=== PATIENT | female | born 1935 | race Caucasian/White ===

== ENCOUNTER 2016-10-01 22:58 | Emergency (ER) | payer OTHER ==
[~2016-10-01] VITALS: Ht 165.1 cm; Wt 87.6 kg
[~2016-10-01 22:58] MED LIST: ACETAMINOPHEN325 M1 PO; ADVAIR HFA120 INHALA IH; AMLODIPINE BES2.5 MG PO; ASPIR-LOW81 MG PO; BACIGUENT28.4 GM PO; BACTRIM,SEPT1 TABLET PO; BISACODYL5 MG PO; CALCIUM 500 +1 EACH PO; CALCIUM CARB1 TABLET PO; CYCLOBENZAPRINE5 MG PO; DOCUSATE SODIU100 MG PO; DOXEPIN HCL10 MG PO; DUONEB 2.5-0.5 M3 ML AEROSOL; ECOTRIN325 MG PO; FUROSEMIDE40 MG PO; HEPARIN SO5000 UNITS SC; HYDROCODON-ACE1 EAC7 PO; HYDROCODON-ACE1 EAC9 PO; HYDROMORPHONE HC2 MG PO; LEXAPRO10 MG PO; LOSARTAN-HCTZ1 EAC1 PO; LOVENOX40 MG/0.4 SC; METRONIDAZOLE500 MG PO; NORCO 5/3251 TABLET PO; OXYCODONE HCL5 MG PO; POLYETHYLENE GL17 GM PO; PRAVACHOL20 MG PO; PRAVASTATIN SOD40 MG PO; PRILOSEC20 MG PO; PROTONIX40 MG PO; SENNA PLUS TAB1 EACH PO; SILENOR3 MG PO; SPIRIVA RESPIMAT4 GM IH; TOPROL XL50 MG PO; TYLENOL REGULA325 MG PO; TYLENOL WITH C1 EACH PO; Thiamine,Vitamin B1 PO; Vitamin B-12 SL; [UNRECOGNIZED DRUG - MIXTURE] IV
[2016-10-01 23:36] LABS: HEMATOCRIT 37.9 % (36.0-46.0); MCH 31.2 PG (29.0-34.0); MCHC 32.7 G/DL (30.0-36.0); MCV 95.5 FL (83-99); MEAN PLAT.VOLUME 9.3 uM^3 (9.5-12.4); PLATELET COUNT 210 K/uL (156-360); RBC DIS.WIDTH-CV 14.7 % (11.8-14.6); RBC DIS.WIDTH-SD 48.8 % (39-53); RED BLOOD COUNT 3.97 M/uL (3.80-5.20); WHITE BLOOD COUNT 5.8 K/uL (4.1-10.2)
[2016-10-01 23:55] LABS: CHLORIDE 108 mEq/L (99-109); POTASSIUM 3.6 mEq/L (3.7-5.4); SODIUM 146 mEq/L (136-147)
[2016-10-01 23:57] LABS: GLUCOSE 112 mg/dL (70-99)
[2016-10-01 23:58] LABS: ANION GAP 13 MEQ/L (2-14)
[2016-10-02 00:01] LABS: GFR ESTIMATE (CALCULATED) 51 mL/min/
[2016-10-02 00:02] LABS: UREA NITROGEN (BUN) 16 mg/dL (9-23)
[2016-10-02 00:05] LABS: TROP-I INTERPRETATION NEGATIVE; TROPONIN-I < 0.01 ng/mL (0.0-0.30)
[2016-10-02 01:01] LABS: ADD MIUA? YES; BILIRUBIN NEGATIVE; BLOOD NEGATIVE; COLOR YELLOW ((YELLOW)); GLUCOSE (STRIP) NEGATIVE; KETONES NEGATIVE; LEUKOCYTES SMALL; NITRITE NEGATIVE; PROTEIN (STRIP) NEGATIVE; UROBILINOGEN 0.2 MG/DL (0.2-1.0)
[2016-10-02 01:16] LABS: BACTERIA RARE /HPF; EPITHELIAL CELLS RARE /HPF; HYALINE CASTS 0-5 /LPF; MUCUS TRACE /LPF; RED BLOOD CELLS 0-5 /HPF (0-5); UCUL ADDED? NO; WHITE BLOOD CELLS 0-5 /HPF (0-5)
[2016-10-02] MEDS ORDERED: NORCO 5/3251 TABLET PO (02:04)
[2016-10-02 02:15] VITALS: BP 134/76
== END 2016-10-02 02:38 | disposition home or self-care (01) ==
LOC: EME → EDBD 22:58 → EME 10-02 02:38
PROVIDERS: Emergency Medicine
DX: S00.83XA Contusion of other part of head, initial encounter (principal); S00.11XA Contusion of right eyelid and periocular area, initial encounter; W19.XXXA Unspecified fall, initial encounter; Z91.81 History of falling
CPT/HCPCS: 70450; 70486; 71020; 72125; 80048; 81003; 84484; 85027; 93005; 99281; 99284

== ENCOUNTER 2017-08-10 19:48 | Inpatient (IN) | payer OTHER ==
[~2017-08-10] VITALS: Ht 172.7 cm; Wt 85.0 kg
[~2017-08-10 19:48] MED LIST changes: +PROTONIX20 MG PO; -PROTONIX40 MG PO
[2017-08-10 21:14] LABS: BASOPHIL (%) 0.2 % (0-1); EOSINOPHIL (%) 0.4 % (0-5); HEMATOCRIT 40.5 % (36.0-46.0); HEMOGLOBIN 13.3 G/DL (11.9-15.5); IMMATURE GRANULOCYTE (%) 0.6 % (0.0-0.7); LYMPHOCYTE (%) 9.9 % (15-42); LYMPHOCYTE COUNT 0.5 K/uL (1.0-2.8); MCH 33.7 PG (29.0-34.0); MCHC 32.8 G/DL (30.0-36.0); MCV 102.5 FL (83-99); MONOCYTE (%) 5.5 % (3-12); MONOCYTE COUNT 0.3 K/uL (0-0.8); NEUTROPHIL (%) 83.4 % (45-76); NEUTROPHIL COUNT 4.6 K/uL (1.8-6.4); PLATELET COUNT 130 K/uL (156-360); RBC DIS.WIDTH-CV 14.6 % (11.8-14.6); RBC DIS.WIDTH-SD 55.2 % (39-53); RED BLOOD COUNT 3.95 M/uL (3.80-5.20); WHITE BLOOD COUNT 5.5 K/uL (4.1-10.2)
[2017-08-10 21:22] LABS: ALBUMIN 3.3 g/dL (3.2-4.8); CHLORIDE 103 mEq/L (99-109); POTASSIUM 3.6 mEq/L (3.7-5.4); SODIUM 141 mEq/L (136-147)
[2017-08-10 21:24] LABS: GLUCOSE 121 mg/dL (70-99)
[2017-08-10 21:25] LABS: TOTAL PROTEIN 6.1 g/dL (6.4-8.3)
[2017-08-10 21:26] LABS: TOTAL BILIRUBIN 1.8 mg/dL (0.0-1.0)
[2017-08-10 21:28] LABS: ALKALINE PHOSPHATASE 117 IU/L (3-129); CREATININE 0.8 mg/dL (0.6-1.3); GFR ESTIMATE (CALCULATED) > 59 mL/min/
[2017-08-10 21:29] LABS: UREA NITROGEN (BUN) 13 mg/dL (9-23)
[2017-08-10 21:30] LABS: AST (GOT) 54 IU/L (2-34)
[2017-08-10 21:31] LABS: ALT (GPT) 34 IU/L (3-49)
[2017-08-10 21:35] LABS: TROP-I INTERPRETATION NEGATIVE; TROPONIN-I 0.02 ng/mL (0.0-0.30)
[2017-08-10] MEDS ORDERED: PRAVACHOL40 MG PO (23:33)
[2017-08-10] MEDS ORDERED: LOPRESSOR50 MG PO (23:33)
[2017-08-10] MEDS ORDERED: COMBIVENT RESPIM4 GM IH (23:34)
[2017-08-10] MEDS ORDERED: VENTOLIN HFA18 GM IH (23:34)
[2017-08-10] MEDS ORDERED: DOXEPIN HCL10 MG PO (23:35)
[2017-08-11 02:08] VITALS: BP 213/92
[2017-08-11 04:15] VITALS: BP 160/72
[2017-08-11 07:18] LABS: APPEARANCE CLOUDY ((CLEAR)); BILIRUBIN NEGATIVE; BLOOD NEGATIVE; COLOR AMBER ((YELLOW)); GLUCOSE (STRIP) NEGATIVE; KETONES NEGATIVE; LEUKOCYTES MODERATE; NITRITE NEGATIVE; PROTEIN (STRIP) 30
[2017-08-11 07:30] LABS: BACTERIA 1+ /HPF; EPITHELIAL CELLS 3+ /HPF; HYALINE CASTS 0-5 /LPF; MUCUS 1+ /LPF; RED BLOOD CELLS 0-5 /HPF (0-5); UCUL ADDED? YES; WHITE BLOOD CELLS 40-50 /HPF (0-5)
[2017-08-11 07:57] LABS: FOLIC ACID (FOLATE) 10.8 NG/ML (5.0-22.0)
[2017-08-11 09:40] VITALS: BP 137/66
[2017-08-11 11:18] VITALS: BP 144/67
[2017-08-11 15:28] VITALS: BP 142/67
[2017-08-11 19:00] VITALS: BP 176/74
[2017-08-12] VITALS: BP 160/71
[2017-08-12 04:19] VITALS: BP 148/68
[2017-08-12 06:20] LABS: CHLORIDE 104 MEQ/L (99-109); CREATININE 0.9 MG/DL (0.6-1.3); GFR ESTIMATE (CALCULATED) > 59 mL/min/; GLUCOSE 94 mg/dL (70-99); POTASSIUM 3.9 MEQ/L (3.7-5.4); SODIUM 143 MEQ/L (136-147); UREA NITROGEN (BUN) 14 mg/dL (9-23)
[2017-08-12 06:24] LABS: HEMATOCRIT 38.2 % (36.0-46.0); HEMOGLOBIN 11.8 G/DL (11.9-15.5); MCHC 30.9 G/DL (30.0-36.0); PLATELET COUNT 126 K/uL (156-360); RBC DIS.WIDTH-CV 14.8 % (11.8-14.6); RBC DIS.WIDTH-SD 58.2 % (39-53); RED BLOOD COUNT 3.58 M/uL (3.80-5.20); WHITE BLOOD COUNT 5.1 K/uL (4.1-10.2)
[2017-08-12 06:27] LABS: MCV 106.7 FL (83-99)
[2017-08-12 07:55] VITALS: BP 157/68
[2017-08-12 11:53] VITALS: BP 167/71
[2017-08-12 15:57] VITALS: BP 128/62
[2017-08-12 18:11] VITALS: BP 150/66
[2017-08-13 00:23] VITALS: BP 157/68
[2017-08-13 04:21] VITALS: BP 125/58
[2017-08-13 09:50] VITALS: BP 136/63
[2017-08-13 11:58] VITALS: BP 118/56
[2017-08-13 15:18] VITALS: BP 114/55
[2017-08-13 23:42] VITALS: BP 134/63
[2017-08-14 05:12] VITALS: BP 126/60
[2017-08-14 09:54] LABS: HEMATOCRIT 39.7 % (36.0-46.0); HEMOGLOBIN 12.7 G/DL (11.9-15.5); MCH 33.4 PG (29.0-34.0); MCV 104.5 FL (83-99); RBC DIS.WIDTH-CV 14.6 % (11.8-14.6); RBC DIS.WIDTH-SD 55.8 % (39-53); WHITE BLOOD COUNT 7.9 K/uL (4.1-10.2)
[2017-08-14 09:57] LABS: PLATELET COUNT 170 K/uL (156-360)
[2017-08-14 10:09] LABS: CHLORIDE 100 MEQ/L (99-109); POTASSIUM 4.1 MEQ/L (3.7-5.4); SODIUM 136 MEQ/L (136-147)
[2017-08-14 10:29] LABS: CREATININE 1.5 MG/DL (0.6-1.3); GFR ESTIMATE (CALCULATED) 36 mL/min/; GLUCOSE 133 mg/dL (70-99); UREA NITROGEN (BUN) 39 mg/dL (9-23)
[2017-08-14 15:15] VITALS: BP 116/64
[2017-08-14 19:11] VITALS: BP 158/73
[2017-08-14 23:14] VITALS: BP 114/57
[2017-08-15 03:52] VITALS: BP 127/60
[2017-08-15 09:39] VITALS: BP 150/69
[2017-08-15 11:39] VITALS: BP 186/77
[2017-08-15 15:34] VITALS: BP 152/66
[2017-08-15 20:26] VITALS: BP 167/70
[2017-08-16] VITALS (7 sets, daily range): BP systolic 125–183; BP diastolic 59–76
[2017-08-17] VITALS (7 sets, daily range): BP systolic 117–176; BP diastolic 61–74
[2017-08-17 14:54] LABS: CHLORIDE 103 MEQ/L (99-109); GFR ESTIMATE (CALCULATED) > 59 mL/min/; GLUCOSE 130 mg/dL (70-99); POTASSIUM 4.4 MEQ/L (3.7-5.4); SODIUM 141 MEQ/L (136-147)
[2017-08-17 15:43] LABS: CREATININE 0.8 MG/DL (0.6-1.3); UREA NITROGEN (BUN) 19 mg/dL (9-23)
[2017-08-18 04:06] VITALS: BP 160/73
[2017-08-18 05:31] LABS: BASOPHIL (%) 0.8 % (0-1); BASOPHIL COUNT 0.1 K/uL (0-0.1); EOSINOPHIL (%) 2.1 % (0-5); EOSINOPHIL COUNT 0.1 K/uL (0-0.3); HEMATOCRIT 41.4 % (36.0-46.0); HEMOGLOBIN 13.1 G/DL (11.9-15.5); IMMATURE GRANULOCYTE (%) 0.2 % (0.0-0.7); LYMPHOCYTE (%) 22.6 % (15-42); LYMPHOCYTE COUNT 1.4 K/uL (1.0-2.8); MCH 33.7 PG (29.0-34.0); MCHC 31.6 G/DL (30.0-36.0); MCV 106.4 FL (83-99); MONOCYTE (%) 8.8 % (3-12); MONOCYTE COUNT 0.5 K/uL (0-0.8); NEUTROPHIL (%) 65.5 % (45-76); PLATELET COUNT 193 K/uL (156-360); RBC DIS.WIDTH-CV 14.6 % (11.8-14.6); RBC DIS.WIDTH-SD 57.3 % (39-53); RED BLOOD COUNT 3.89 M/uL (3.80-5.20); WHITE BLOOD COUNT 6.1 K/uL (4.1-10.2)
[2017-08-18 06:05] LABS: CHLORIDE 104 MEQ/L (99-109); CREATININE 0.9 MG/DL (0.6-1.3); GFR ESTIMATE (CALCULATED) > 59 mL/min/; GLUCOSE 84 mg/dL (70-99); POTASSIUM 4.3 MEQ/L (3.7-5.4); SODIUM 143 MEQ/L (136-147); UREA NITROGEN (BUN) 14 mg/dL (9-23)
[2017-08-18 08:58] VITALS: BP 185/79
[2017-08-18 11:47] VITALS: BP 168/70
[2017-08-18 15:22] VITALS: BP 162/74
[2017-08-18 23:38] VITALS: BP 172/72
[2017-08-19 02:47] VITALS: BP 128/73
[2017-08-19 08:25] VITALS: BP 178/74
[2017-08-19 12:41] VITALS: BP 149/67
[2017-08-19] MEDS ORDERED: OXYCODONE HCL5 MG PO (13:52)
[2017-08-19] MEDS ORDERED: AMLODIPINE BESYL5 MG PO (13:52)
[2017-08-19 15:20] VITALS: BP 139/62
== END 2017-08-19 16:40 | DRG 551 ==
LOC: EME 19:48 → EDOF 08-11 00:19 → ENRESERV 08-11 00:21 → 5WEST 08-11 01:57
PROVIDERS: Emergency Medicine; Hospitalist; Internal Medicine
DX: S22.050A Wedge compression fracture of T5-T6 vertebra, initial encounter for closed fracture (principal); J96.01 Acute respiratory failure with hypoxia; W19.XXXA Unspecified fall, initial encounter; N39.0 Urinary tract infection, site not specified; W18.30XA Fall on same level, unspecified, initial encounter; I10 Essential (primary) hypertension; E78.5 Hyperlipidemia, unspecified; E87.6 Hypokalemia; J98.11 Atelectasis; K21.9 Gastro-esophageal reflux disease without esophagitis; Z98.1 Arthrodesis status; Z96.642 Presence of left artificial hip joint; E66.9 Obesity, unspecified; Z68.28 Body mass index [BMI] 28.0-28.9, adult; K76.0 Fatty (change of) liver, not elsewhere classified; E53.8 Deficiency of other specified B group vitamins; J43.9 Emphysema, unspecified; Z91.81 History of falling; I35.0 Nonrheumatic aortic (valve) stenosis
CPT/HCPCS: 70450; 71045; 71250; 72125; 72128; 72131; 72146; 72148; 74176; 80048; 80053; 81003; 82306; 82607; 82746; 83880; 84443; 84484; 85025; 85027; 87086; 93005; 93306; 94010; 94640; 94640 76; 94760; 94799; 97530 GO; 97530 GP; 99202; 99281; 99285; G8978 GP CJ; G8979 GP CH; G8987 GO CJ; G8988 CI; J0456; J1644; J2270; J2405; J2930; J3010; J7030; J7512

== ENCOUNTER 2017-10-11 21:04 | Inpatient (IN) | payer OTHER ==
[~2017-10-11] VITALS: Ht 172.7 cm; Wt 81.7 kg
[~2017-10-11 21:04] MED LIST changes: +AMLODIPINE BESYL5 MG PO; +COMBIVENT RESPIM4 GM IH; +LOPRESSOR50 MG PO; +PRAVACHOL40 MG PO; +VENTOLIN HFA18 GM IH
[2017-10-11 22:57] LABS: HEMOGLOBIN 11.9 G/DL (11.9-15.5); MCH 33.3 PG (29.0-34.0); MCHC 33.1 G/DL (30.0-36.0); MCV 100.8 FL (83-99); PLATELET COUNT 156 K/uL (156-360); RBC DIS.WIDTH-CV 14.6 % (11.8-14.6); RBC DIS.WIDTH-SD 54.4 % (39-53); RED BLOOD COUNT 3.57 M/uL (3.80-5.20); WHITE BLOOD COUNT 6.2 K/uL (4.1-10.2)
[2017-10-11 23:00] LABS: APPEARANCE SL.HAZY ((CLEAR)); BILIRUBIN NEGATIVE; BLOOD NEGATIVE; COLOR YELLOW ((YELLOW)); GLUCOSE (STRIP) NEGATIVE; KETONES NEGATIVE; LEUKOCYTES LARGE; NITRITE NEGATIVE; PROTEIN (STRIP) NEGATIVE; SPECIFIC GRAVITY 1.012 (1.000-1.030)
[2017-10-11 23:04] LABS: INTER. NORMALIZED RATIO 1.1
[2017-10-11 23:06] LABS: ALBUMIN 3.3 g/dL (3.2-4.8); PTT 27.6 SEC (25-37)
[2017-10-11 23:07] LABS: CHLORIDE 106 mEq/L (99-109); POTASSIUM 3.4 mEq/L (3.7-5.4); SODIUM 142 mEq/L (136-147)
[2017-10-11 23:09] LABS: GLUCOSE 121 mg/dL (70-99); TOTAL PROTEIN 5.5 g/dL (6.4-8.3)
[2017-10-11 23:11] LABS: TOTAL BILIRUBIN 0.8 mg/dL (0.0-1.0)
[2017-10-11 23:12] LABS: ALKALINE PHOSPHATASE 121 IU/L (3-129)
[2017-10-11 23:13] LABS: CREATININE 0.8 mg/dL (0.6-1.3); GFR ESTIMATE (CALCULATED) > 59 mL/min/
[2017-10-11 23:14] LABS: AST (GOT) 35 IU/L (2-34); UREA NITROGEN (BUN) 17 mg/dL (9-23)
[2017-10-11 23:15] LABS: ALT (GPT) 20 IU/L (3-49)
[2017-10-11 23:16] LABS: LIPASE 72 U/L (1.0-51.0)
[2017-10-11 23:18] LABS: TROP-I INTERPRETATION NEGATIVE; TROPONIN-I < 0.01 ng/mL (0.0-0.30)
[2017-10-11 23:24] LABS: BACTERIA 1+ /HPF; EPITHELIAL CELLS 1+ /HPF; MUCUS RARE /LPF; UCUL ADDED? YES
[2017-10-12] VITALS (17 sets, daily range): BP systolic 110–152; BP diastolic 51–81
[2017-10-12] MEDS ORDERED: NORVASC5 MG PO (01:24)
[2017-10-12] MEDS ORDERED: FOSAMAX70 MG PO (01:24)
[2017-10-12 05:00] LABS: HEMATOCRIT 33.2 % (36.0-46.0); HEMOGLOBIN 11.4 G/DL (11.9-15.5); MCH 34.2 PG (29.0-34.0); MCHC 34.3 G/DL (30.0-36.0); MCV 99.7 FL (83-99); PLATELET COUNT 157 K/uL (156-360); RBC DIS.WIDTH-CV 14.5 % (11.8-14.6); RBC DIS.WIDTH-SD 52.3 % (39-53); RED BLOOD COUNT 3.33 M/uL (3.80-5.20); WHITE BLOOD COUNT 5.2 K/uL (4.1-10.2)
[2017-10-12 05:08] LABS: ALBUMIN 3.1 g/dL (3.2-4.8)
[2017-10-12 05:09] LABS: CHLORIDE 108 mEq/L (99-109); POTASSIUM 3.9 mEq/L (3.7-5.4); SODIUM 141 mEq/L (136-147)
[2017-10-12 05:11] LABS: GLUCOSE 137 mg/dL (70-99)
[2017-10-12 05:13] LABS: TOTAL BILIRUBIN 0.8 mg/dL (0.0-1.0)
[2017-10-12 05:14] LABS: ALKALINE PHOSPHATASE 111 IU/L (3-129)
[2017-10-12 05:15] LABS: CREATININE 0.7 mg/dL (0.6-1.3); GFR ESTIMATE (CALCULATED) > 59 mL/min/
[2017-10-12 05:16] LABS: AST (GOT) 40 IU/L (2-34); UREA NITROGEN (BUN) 15 mg/dL (9-23)
[2017-10-12 05:18] LABS: ALT (GPT) 21 IU/L (3-49)
[2017-10-13 03:33] VITALS: BP 132/62
[2017-10-13 06:07] LABS: HEMATOCRIT 33.5 % (36.0-46.0); HEMOGLOBIN 10.8 G/DL (11.9-15.5); MCH 32.9 PG (29.0-34.0); MCHC 32.2 G/DL (30.0-36.0); MCV 102.1 FL (83-99); PLATELET COUNT 162 K/uL (156-360); RBC DIS.WIDTH-CV 15.1 % (11.8-14.6); RBC DIS.WIDTH-SD 55.8 % (39-53); RED BLOOD COUNT 3.28 M/uL (3.80-5.20); WHITE BLOOD COUNT 5.8 K/uL (4.1-10.2)
[2017-10-13 06:13] LABS: ALBUMIN 3.1 G/DL (3.2-4.8); ALKALINE PHOSPHATASE 75 IU/L (3-129); ALT (GPT) 14 IU/L (3-49); AST (GOT) 36 IU/L (2-34); CHLORIDE 107 MEQ/L (99-109); CREATININE 0.7 MG/DL (0.6-1.3); GFR ESTIMATE (CALCULATED) > 59 mL/min/; GLUCOSE 112 mg/dL (70-99); POTASSIUM 4.1 MEQ/L (3.7-5.4); SODIUM 139 MEQ/L (136-147); TOTAL BILIRUBIN 0.9 MG/DL (0.0-1.0); TOTAL PROTEIN 5.1 G/DL (6.4-8.3); UREA NITROGEN (BUN) 11 mg/dL (9-23)
[2017-10-13 08:11] VITALS: BP 121/57
[2017-10-13 11:53] VITALS: BP 118/57
[2017-10-13 17:11] VITALS: BP 144/65
[2017-10-13 20:40] VITALS: BP 148/65
[2017-10-14 00:18] VITALS: BP 132/84
[2017-10-14 04:51] VITALS: BP 150/65
[2017-10-14 06:03] LABS: HEMATOCRIT 36.1 % (36.0-46.0); HEMOGLOBIN 11.5 G/DL (11.9-15.5); MCHC 31.9 G/DL (30.0-36.0); MCV 103.4 FL (83-99); PLATELET COUNT 191 K/uL (156-360); RBC DIS.WIDTH-CV 15.3 % (11.8-14.6); RBC DIS.WIDTH-SD 57.7 % (39-53); RED BLOOD COUNT 3.49 M/uL (3.80-5.20); WHITE BLOOD COUNT 8.3 K/uL (4.1-10.2)
[2017-10-14 06:37] LABS: ALBUMIN 3.5 G/DL (3.2-4.8); ALKALINE PHOSPHATASE 92 IU/L (3-129); ALT (GPT) 18 IU/L (3-49); AST (GOT) 30 IU/L (2-34); CHLORIDE 105 MEQ/L (99-109); CREATININE 0.8 MG/DL (0.6-1.3); GFR ESTIMATE (CALCULATED) > 59 mL/min/; GLUCOSE 101 mg/dL (70-99); POTASSIUM 4.3 MEQ/L (3.7-5.4); SODIUM 142 MEQ/L (136-147); TOTAL PROTEIN 5.6 G/DL (6.4-8.3); UREA NITROGEN (BUN) 10 mg/dL (9-23)
[2017-10-14 06:43] LABS: TOTAL BILIRUBIN 1.3 MG/DL (0.0-1.0)
[2017-10-14 07:23] VITALS: BP 130/63
[2017-10-14 10:25] VITALS: BP 123/62
[2017-10-14 15:59] VITALS: BP 158/72
[2017-10-14 20:38] VITALS: BP 138/63
[2017-10-15] VITALS (7 sets, daily range): BP systolic 126–167; BP diastolic 59–74
[2017-10-16 04:28] VITALS: BP 134/61
[2017-10-16 07:57] VITALS: BP 167/74
[2017-10-16 09:08] LABS: ALBUMIN 3.4 G/DL (3.2-4.8); ALKALINE PHOSPHATASE 87 IU/L (3-129); ALT (GPT) 15 IU/L (3-49); AST (GOT) 22 IU/L (2-34); CHLORIDE 100 MEQ/L (99-109); CREATININE 0.6 MG/DL (0.6-1.3); DIRECT BILIRUBIN 0.5 mg/dL (0.0-0.3); GFR ESTIMATE (CALCULATED) > 59 mL/min/; GLUCOSE 133 mg/dL (70-99); POTASSIUM 3.5 MEQ/L (3.7-5.4); SODIUM 140 MEQ/L (136-147); TOTAL PROTEIN 5.4 G/DL (6.4-8.3); UREA NITROGEN (BUN) 12 mg/dL (9-23)
[2017-10-16 09:16] LABS: TOTAL BILIRUBIN 1.6 MG/DL (0.0-1.0)
[2017-10-16 11:00] VITALS: BP 159/72
[2017-10-16 15:00] LABS: APPEARANCE CLEAR ((CLEAR)); BILIRUBIN NEGATIVE; BLOOD NEGATIVE; COLOR YELLOW ((YELLOW)); GLUCOSE (STRIP) NEGATIVE; KETONES NEGATIVE; LEUKOCYTES NEGATIVE; NITRITE NEGATIVE; PROTEIN (STRIP) NEGATIVE; SPECIFIC GRAVITY 1.018 (1.000-1.030); UCUL ADDED? NO
[2017-10-16 16:12] VITALS: BP 151/71
[2017-10-17 01:07] VITALS: BP 136/65
[2017-10-17 06:20] LABS: ALKALINE PHOSPHATASE 72 IU/L (3-129); ALT (GPT) 14 IU/L (3-49); AST (GOT) 23 IU/L (2-34); CHLORIDE 99 MEQ/L (99-109); CREATININE 0.6 MG/DL (0.6-1.3); GFR ESTIMATE (CALCULATED) > 59 mL/min/; POTASSIUM 3.3 MEQ/L (3.7-5.4); SODIUM 138 MEQ/L (136-147); TOTAL BILIRUBIN 1.6 MG/DL (0.0-1.0); TOTAL PROTEIN 5.5 G/DL (6.4-8.3); UREA NITROGEN (BUN) 12 mg/dL (9-23)
[2017-10-17 06:21] LABS: GLUCOSE 91 mg/dL (70-99)
[2017-10-17 07:00] VITALS: BP 144/67
[2017-10-17 12:08] VITALS: BP 133/63
[2017-10-17 15:30] VITALS: BP 157/67
[2017-10-17 23:30] VITALS: BP 123/58
[2017-10-18 07:37] LABS: ALKALINE PHOSPHATASE 79 IU/L (3-129); ALT (GPT) 14 IU/L (3-49); AST (GOT) 20 IU/L (2-34); DIRECT BILIRUBIN 0.5 mg/dL (0.0-0.3); TOTAL BILIRUBIN 1.5 MG/DL (0.0-1.0); TOTAL PROTEIN 5.2 G/DL (6.4-8.3)
[2017-10-18 07:38] LABS: ALBUMIN 3.1 G/DL (3.2-4.8); ALKALINE PHOSPHATASE 80 IU/L (3-129); ALT (GPT) 14 IU/L (3-49); AST (GOT) 20 IU/L (2-34); CHLORIDE 102 MEQ/L (99-109); CREATININE 0.6 MG/DL (0.6-1.3); GFR ESTIMATE (CALCULATED) > 59 mL/min/; GLUCOSE 88 mg/dL (70-99); POTASSIUM 3.4 MEQ/L (3.7-5.4); SODIUM 143 MEQ/L (136-147); TOTAL BILIRUBIN 1.5 MG/DL (0.0-1.0); TOTAL PROTEIN 5.3 G/DL (6.4-8.3); UREA NITROGEN (BUN) 12 mg/dL (9-23)
[2017-10-18 07:55] VITALS: BP 153/67
[2017-10-18 11:02] VITALS: BP 135/64
[2017-10-18] MEDS ORDERED: SENNA LAX8.6 MG PO (15:33)
[2017-10-18] MEDS ORDERED: TRAMADOL HCL50 MG PO (15:33)
[2017-10-18 17:03] VITALS: BP 176/75
== END 2017-10-18 18:19 | DRG 87 ==
LOC: EME → EDBD 21:04 → EDOF 10-12 01:23 → 3EAST 10-12 01:23 → 4WEST 10-12 01:23 → ENRESERV 10-12 01:25 → 4WEST 10-12 02:58 → ENRESERV 10-12 12:35 → 3EAST 10-12 16:13
PROVIDERS: Emergency Medicine; Physician Assistant; Surgery
DX: S06.5X0A Traumatic subdural hemorrhage without loss of consciousness, initial encounter (principal); S06.6X0A Traumatic subarachnoid hemorrhage without loss of consciousness, initial encounter; S02.119A Unspecified fracture of occiput, initial encounter for closed fracture; W18.30XA Fall on same level, unspecified, initial encounter; S01.01XA Laceration without foreign body of scalp, initial encounter; Z91.81 History of falling; J44.9 Chronic obstructive pulmonary disease, unspecified; R40.2410 Glasgow coma scale score 13-15, unspecified time; K21.9 Gastro-esophageal reflux disease without esophagitis; R29.6 Repeated falls; E66.9 Obesity, unspecified; Z68.28 Body mass index [BMI] 28.0-28.9, adult; I10 Essential (primary) hypertension; R25.1 Tremor, unspecified; Z87.891 Personal history of nicotine dependence; E78.5 Hyperlipidemia, unspecified; E87.6 Hypokalemia; I25.2 Old myocardial infarction; Z87.440 Personal history of urinary (tract) infections; E04.2 Nontoxic multinodular goiter; D18.03 Hemangioma of intra-abdominal structures; Z79.82 Long term (current) use of aspirin; D69.1 Qualitative platelet defects; N39.41 Urge incontinence; Z98.1 Arthrodesis status; R31.9 Hematuria, unspecified
CPT/HCPCS: 70450; 70496; 70498; 71045; 72125; 72131; 76705; 80048; 80053; 80076; 81003; 82310; 83690; 84484; 85027; 85610; 85730; 87086; 87641; 93005; 94640; 94640 76; 94799; 95819; 97530 GP; 99202; 99281; 99285; J0744; J2270; J7030

== ENCOUNTER → 2017-11-06 | Outpatient (CLI) | payer OTHER ==
[~2017-11-06] MED LIST changes: +FOSAMAX70 MG PO; +NORVASC5 MG PO; +SENNA LAX8.6 MG PO; +TRAMADOL HCL50 MG PO
== END | disposition home or self-care (01) ==
LOC: RAD 09:00
DX: D18.1 Lymphangioma, any site (principal); S02.119D Unspecified fracture of occiput, subsequent encounter for fracture with routine healing; I67.89 Other cerebrovascular disease
CPT/HCPCS: 70450

== ENCOUNTER 2018-01-09 22:11 | Inpatient (IN) | payer OTHER ==
[~2018-01-09] VITALS: Ht 172.7 cm; Wt 90.0 kg
[2018-01-09 23:01] LABS: HEMATOCRIT 37.2 % (36.0-46.0); HEMOGLOBIN 12.4 G/DL (11.9-15.5); MCH 31.9 PG (29.0-34.0); MCHC 33.3 G/DL (30.0-36.0); PLATELET COUNT 215 K/uL (156-360); RBC DIS.WIDTH-CV 15.2 % (11.8-14.6); RBC DIS.WIDTH-SD 53.4 % (39-53); RED BLOOD COUNT 3.89 M/uL (3.80-5.20); WHITE BLOOD COUNT 7.3 K/uL (4.1-10.2)
[2018-01-09 23:14] LABS: CHLORIDE 105 mEq/L (99-109); POTASSIUM 4.1 mEq/L (3.7-5.4); SODIUM 145 mEq/L (136-147)
[2018-01-09 23:17] LABS: GLUCOSE 117 mg/dL (70-99); TOTAL PROTEIN 6.8 g/dL (6.4-8.3)
[2018-01-09 23:19] LABS: MCV 95.6 FL (83-99); TOTAL BILIRUBIN 1.1 mg/dL (0.0-1.0)
[2018-01-09 23:20] LABS: ALKALINE PHOSPHATASE 102 IU/L (3-129); GFR ESTIMATE (CALCULATED) 57 mL/min/
[2018-01-09 23:22] LABS: AST (GOT) 30 IU/L (2-34)
[2018-01-09 23:23] LABS: ALT (GPT) 20 IU/L (3-49)
[2018-01-09 23:25] LABS: UREA NITROGEN (BUN) 33 mg/dL (9-23)
[2018-01-09 23:29] LABS: TROP-I INTERPRETATION NEGATIVE; TROPONIN-I < 0.01 ng/mL (0.0-0.30)
[2018-01-09 23:52] LABS: APPEARANCE CLEAR ((CLEAR)); BILIRUBIN NEGATIVE; BLOOD NEGATIVE; COLOR YELLOW ((YELLOW)); GLUCOSE (STRIP) NEGATIVE; KETONES NEGATIVE; LEUKOCYTES NEGATIVE; NITRITE NEGATIVE; PROTEIN (STRIP) NEGATIVE; SPECIFIC GRAVITY 1.016 (1.000-1.030); UCUL ADDED? NO
[2018-01-10] VITALS (15 sets, daily range): BP systolic 108–174; BP diastolic 42–72
[2018-01-10] MEDS ORDERED: PRAVASTATIN SOD40 MG PO (00:40)
[2018-01-10] MEDS ORDERED: METOPROLOL TART50 MG PO (00:42)
[2018-01-10] MEDS ORDERED: KLOR-CON20 MEQ PO (00:45)
[2018-01-10] MEDS ORDERED: SENNA LAX8.6 MG PO (00:51)
[2018-01-10] MEDS ORDERED: OMEPRAZOLE20 MG PO (00:52)
[2018-01-10] MEDS ORDERED: ESCITALOPRAM OX10 MG PO (00:53)
[2018-01-10] MEDS ORDERED: ALENDRONATE SOD70 MG PO (00:56)
[2018-01-10] MEDS ORDERED: PREDNISONE10 MG PO (01:00)
[2018-01-10] MEDS ORDERED: FUROSEMIDE20 MG PO (01:02)
[2018-01-10 03:25] LABS: SALICYLATE < 5.0 MG/DL (15-30)
[2018-01-10 05:56] LABS: BASOPHIL (%) 0.1 % (0-1); EOSINOPHIL (%) 0.1 % (0-5); HEMATOCRIT 37.7 % (36.0-46.0); HEMOGLOBIN 12.3 G/DL (11.9-15.5); IMMATURE GRANULOCYTE (%) 0.6 % (0.0-0.7); LYMPHOCYTE (%) 10.3 % (15-42); LYMPHOCYTE COUNT 0.9 K/uL (1.0-2.8); MCH 31.5 PG (29.0-34.0); MCHC 32.6 G/DL (30.0-36.0); MCV 96.4 FL (83-99); MONOCYTE (%) 7.9 % (3-12); MONOCYTE COUNT 0.7 K/uL (0-0.8); NEUTROPHIL COUNT 6.9 K/uL (1.8-6.4); PLATELET COUNT 224 K/uL (156-360); RBC DIS.WIDTH-CV 15.1 % (11.8-14.6); RED BLOOD COUNT 3.91 M/uL (3.80-5.20); WHITE BLOOD COUNT 8.5 K/uL (4.1-10.2)
[2018-01-10 06:08] LABS: CHLORIDE 109 mEq/L (99-109); POTASSIUM 3.9 mEq/L (3.7-5.4); SODIUM 148 mEq/L (136-147)
[2018-01-10 06:09] LABS: GLUCOSE 128 mg/dL (70-99)
[2018-01-10 06:13] LABS: CREATININE 1.1 mg/dL (0.6-1.3); GFR ESTIMATE (CALCULATED) 51 mL/min/
[2018-01-10 06:14] LABS: UREA NITROGEN (BUN) 35 mg/dL (9-23)
[2018-01-10 09:01] LABS: COMMENTS - BLOOD GASES A+C+; DEVICE 840; FI02 60 %; MECHANICAL RATE 16 resp/min; MODE A/C; PCO2 44 mm Hg (35-45); PEEP 5 CM/H20; PO2 246 mm Hg (80-100); SITE RR; TIDAL VOLUME 450 ML; TOTAL RESP RATE 16 resp/min; pH 7.41 (7.35-7.45)
[2018-01-10 09:02] LABS: BASE EXCESS 2.8 mEq/L (-3 to +3); BICARBONATE 27.9 mEq/L (22-26); CARBOXY HGB 1.6 % (0-5); METHEMOGLOBIN 1.3 % (0-1.5)
[2018-01-10 09:45] LABS: INTER. NORMALIZED RATIO 1.2
[2018-01-10 09:48] LABS: PTT 21.6 SEC (25-37)
[2018-01-10 10:10] LABS: SERUM ETHYL ALCOHOL < 10 mg/dL
[2018-01-10 10:13] LABS: ACETAMINOPHEN (TYLENOL) < 10 mcg/mL (10-30)
[2018-01-10 16:31] LABS: ALBUMIN 3.3 G/DL (3.2-4.8); ALKALINE PHOSPHATASE 65 IU/L (3-129); ALT (GPT) 19 IU/L (3-49); AST (GOT) 46 IU/L (2-34); DIRECT BILIRUBIN 0.4 mg/dL (0.0-0.3); TOTAL BILIRUBIN 1.1 MG/DL (0.0-1.0); TOTAL PROTEIN 5.4 G/DL (6.4-8.3)
[2018-01-11] VITALS (26 sets, daily range): BP systolic 94–150; BP diastolic 36–99
[2018-01-11 05:57] LABS: ALBUMIN 3.2 G/DL (3.2-4.8); ALKALINE PHOSPHATASE 67 IU/L (3-129); ALT (GPT) 20 IU/L (3-49); AST (GOT) 56 IU/L (2-34); CHLORIDE 112 MEQ/L (99-109); CREATININE 0.8 MG/DL (0.6-1.3); GFR ESTIMATE (CALCULATED) > 59 mL/min/; GLUCOSE 119 mg/dL (70-99); POTASSIUM 3.4 MEQ/L (3.7-5.4); SODIUM 144 MEQ/L (136-147); TOTAL PROTEIN 5.8 G/DL (6.4-8.3); UREA NITROGEN (BUN) 22 mg/dL (9-23)
[2018-01-11 06:33] LABS: BASOPHIL (%) 0.2 % (0-1); EOSINOPHIL (%) 0.5 % (0-5); HEMATOCRIT 33.7 % (36.0-46.0); HEMOGLOBIN 10.7 G/DL (11.9-15.5); IMMATURE GRANULOCYTE (%) 0.6 % (0.0-0.7); LYMPHOCYTE (%) 13.8 % (15-42); LYMPHOCYTE COUNT 1.2 K/uL (1.0-2.8); MCH 31.2 PG (29.0-34.0); MCHC 31.8 G/DL (30.0-36.0); MCV 98.3 FL (83-99); MONOCYTE (%) 9.1 % (3-12); MONOCYTE COUNT 0.8 K/uL (0-0.8); NEUTROPHIL (%) 75.8 % (45-76); NEUTROPHIL COUNT 6.3 K/uL (1.8-6.4); PLATELET COUNT 175 K/uL (156-360); RBC DIS.WIDTH-CV 15.4 % (11.8-14.6); RBC DIS.WIDTH-SD 55.5 % (39-53); RED BLOOD COUNT 3.43 M/uL (3.80-5.20); WHITE BLOOD COUNT 8.3 K/uL (4.1-10.2)
[2018-01-11 08:51] LABS: HIGH-SENS C-REACTIVE PROTEIN 2.05 MG/DL (0.02-0.20)
[2018-01-11 10:18] LABS: INTER. NORMALIZED RATIO 1.2
[2018-01-11 10:20] LABS: PTT 22.4 SEC (25-37)
[2018-01-11 10:28] LABS: COMMENTS - BLOOD GASES A+C+; DEVICE PB 840; SITE RR
[2018-01-11 10:29] LABS: BASE EXCESS -0.4 mEq/L (-3 to +3); BICARBONATE 24.1 mEq/L (22-26); CARBOXY HGB 1.9 % (0-5); FI02 35 %; MECHANICAL RATE 16 resp/min; METHEMOGLOBIN 0.9 % (0-1.5); MODE AC; O2 SATURATION (CALCULATED) 97.3 % (95-99); PCO2 38 mm Hg (35-45); PEEP 5 CM/H20; PO2 79 mm Hg (80-100); TIDAL VOLUME 450 ML; TOTAL RESP RATE 16 resp/min; pH 7.41 (7.35-7.45)
[2018-01-11 11:03] LABS: THYROTROPIN (TSH) 0.91 MIU/L (0.4-5.5)
[2018-01-11 11:08] LABS: PROLACTIN 15.5 NG/ML
[2018-01-11 15:13] LABS: APPEARANCE CLEAR ((CLEAR)); BILIRUBIN NEGATIVE; BLOOD NEGATIVE; COLOR YELLOW ((YELLOW)); GLUCOSE (STRIP) NEGATIVE; KETONES NEGATIVE; LEUKOCYTES TRACE; NITRITE NEGATIVE; PROTEIN (STRIP) NEGATIVE; SPECIFIC GRAVITY 1.017 (1.000-1.030); UROBILINOGEN 0.2 MG/DL (0.2-1.0)
[2018-01-11 15:17] LABS: BACTERIA RARE /HPF; EPITHELIAL CELLS NONE SEEN /HPF; MUCUS TRACE /LPF; RED BLOOD CELLS 0-5 /HPF (0-5); UCUL ADDED? NO; WHITE BLOOD CELLS 0-5 /HPF (0-5)
[2018-01-12] VITALS (17 sets, daily range): BP systolic 111–172; BP diastolic 41–93
[2018-01-12 05:58] LABS: HIGH-SENS C-REACTIVE PROTEIN 3.35 MG/DL (0.02-0.20)
[2018-01-12 06:20] LABS: ALKALINE PHOSPHATASE 63 IU/L (3-129); ALT (GPT) 18 IU/L (3-49); AST (GOT) 33 IU/L (2-34); CHLORIDE 115 MEQ/L (99-109); CREATININE 0.7 MG/DL (0.6-1.3); GFR ESTIMATE (CALCULATED) > 59 mL/min/; GLUCOSE 155 mg/dL (70-99); POTASSIUM 2.9 MEQ/L (3.7-5.4); SODIUM 146 MEQ/L (136-147); TOTAL PROTEIN 5.4 G/DL (6.4-8.3); UREA NITROGEN (BUN) 17 mg/dL (9-23)
[2018-01-12 06:22] LABS: TOTAL BILIRUBIN 0.7 MG/DL (0.0-1.0)
[2018-01-12 08:01] LABS: BASOPHIL (%) 0 % (0-1); EOSINOPHIL (%) 0 % (0-5); HEMATOCRIT 30.7 % (36.0-46.0); HEMOGLOBIN 9.7 G/DL (11.9-15.5); IMMATURE GRANULOCYTE (%) 0.5 % (0.0-0.7); LYMPHOCYTE (%) 11.2 % (15-42); LYMPHOCYTE COUNT 0.7 K/uL (1.0-2.8); MCH 31.4 PG (29.0-34.0); MCHC 31.6 G/DL (30.0-36.0); MCV 99.4 FL (83-99); MONOCYTE (%) 4.3 % (3-12); MONOCYTE COUNT 0.3 K/uL (0-0.8); NEUTROPHIL COUNT 4.9 K/uL (1.8-6.4); PLATELET COUNT 141 K/uL (156-360); RBC DIS.WIDTH-CV 14.7 % (11.8-14.6); RBC DIS.WIDTH-SD 54.1 % (39-53); RED BLOOD COUNT 3.09 M/uL (3.80-5.20); WHITE BLOOD COUNT 5.9 K/uL (4.1-10.2)
[2018-01-12 10:54] LABS: MAGNESIUM 1.9 mg/dl (1.3-2.7); PHOSPHORUS 2.4 mg/dL (2.5-4.9)
[2018-01-12 12:28] LABS: HEPATITIS B SURFACE ANTIGEN Nonreactive; HEPATITIS C ANTIBODY Nonreactive
[2018-01-12 12:29] LABS: ANTI-HEPATITIS A VIRUS (IGM) Nonreactive
[2018-01-12 12:30] LABS: ANTI-HEPATITIS B CORE (IGM) Nonreactive
[2018-01-13 05:21] LABS: BASOPHIL (%) 0 % (0-1); EOSINOPHIL (%) 0 % (0-5); HEMATOCRIT 33.7 % (36.0-46.0); IMMATURE GRANULOCYTE (%) 0.3 % (0.0-0.7); LYMPHOCYTE (%) 14.7 % (15-42); LYMPHOCYTE COUNT 0.6 K/uL (1.0-2.8); MCH 31.3 PG (29.0-34.0); MCHC 32.6 G/DL (30.0-36.0); MONOCYTE (%) 4.2 % (3-12); MONOCYTE COUNT 0.2 K/uL (0-0.8); NEUTROPHIL (%) 80.8 % (45-76); NEUTROPHIL COUNT 3.1 K/uL (1.8-6.4); PLATELET COUNT 136 K/uL (156-360); RBC DIS.WIDTH-CV 14.4 % (11.8-14.6); RBC DIS.WIDTH-SD 50.4 % (39-53); RED BLOOD COUNT 3.51 M/uL (3.80-5.20); WHITE BLOOD COUNT 3.8 K/uL (4.1-10.2)
[2018-01-13 05:37] LABS: ALBUMIN 3.1 G/DL (3.2-4.8); ALKALINE PHOSPHATASE 59 IU/L (3-129); ALT (GPT) 21 IU/L (3-49); AST (GOT) 23 IU/L (2-34); CHLORIDE 117 MEQ/L (99-109); CREATININE 0.6 MG/DL (0.6-1.3); GFR ESTIMATE (CALCULATED) > 59 mL/min/; GLUCOSE 212 mg/dL (70-99); PHOSPHORUS 2.7 mg/dL (2.5-4.9); SODIUM 150 MEQ/L (136-147); TOTAL PROTEIN 5.6 G/DL (6.4-8.3); UREA NITROGEN (BUN) 17 mg/dL (9-23)
[2018-01-13 05:39] LABS: MAGNESIUM 2.3 mg/dl (1.3-2.7); POTASSIUM 2.1 MEQ/L (3.7-5.4); TOTAL BILIRUBIN 0.5 MG/DL (0.0-1.0)
[2018-01-13 12:00] VITALS: BP 150/60
[2018-01-13 16:00] VITALS: BP 160/73
[2018-01-13 19:24] LABS: HEMATOCRIT 34.6 % (36.0-46.0); HEMOGLOBIN 11.1 G/DL (11.9-15.5); MCH 31.3 PG (29.0-34.0); MCHC 32.1 G/DL (30.0-36.0); MCV 97.5 FL (83-99); PLATELET COUNT 163 K/uL (156-360); RBC DIS.WIDTH-CV 14.9 % (11.8-14.6); RBC DIS.WIDTH-SD 53.2 % (39-53); RED BLOOD COUNT 3.55 M/uL (3.80-5.20)
[2018-01-13 19:51] LABS: CHLORIDE 128 MEQ/L (99-109); CREATININE 0.7 MG/DL (0.6-1.3); GFR ESTIMATE (CALCULATED) > 59 mL/min/; GLUCOSE 157 mg/dL (70-99); SODIUM 154 MEQ/L (136-147); UREA NITROGEN (BUN) 16 mg/dL (9-23)
[2018-01-13 20:00] VITALS: BP 145/72
[2018-01-13 20:08] LABS: POTASSIUM 5.7 MEQ/L (3.7-5.4)
[2018-01-13 21:00] VITALS: BP 150/66
[2018-01-13 22:00] VITALS: BP 109/53
[2018-01-13 23:00] VITALS: BP 143/76
[2018-01-14] VITALS (10 sets, daily range): BP systolic 118–195; BP diastolic 69–121
[2018-01-14 05:14] LABS: BASOPHIL (%) 0.1 % (0-1); EOSINOPHIL (%) 0.1 % (0-5); HEMOGLOBIN 11.5 G/DL (11.9-15.5); IMMATURE GRANULOCYTE (%) 1.1 % (0.0-0.7); LYMPHOCYTE COUNT 0.8 K/uL (1.0-2.8); MCH 31.4 PG (29.0-34.0); MCHC 31.1 G/DL (30.0-36.0); MCV 101.1 FL (83-99); MONOCYTE (%) 6.1 % (3-12); MONOCYTE COUNT 0.5 K/uL (0-0.8); NEUTROPHIL (%) 83.6 % (45-76); NEUTROPHIL COUNT 7.5 K/uL (1.8-6.4); PLATELET COUNT 178 K/uL (156-360); RBC DIS.WIDTH-CV 15.4 % (11.8-14.6); RBC DIS.WIDTH-SD 56.9 % (39-53); RED BLOOD COUNT 3.66 M/uL (3.80-5.20); WHITE BLOOD COUNT 8.9 K/uL (4.1-10.2)
[2018-01-14 06:15] LABS: ALBUMIN 3.3 G/DL (3.2-4.8); ALKALINE PHOSPHATASE 70 IU/L (3-129); ALT (GPT) 26 IU/L (3-49); AST (GOT) 27 IU/L (2-34); CHLORIDE 127 MEQ/L (99-109); CREATININE 0.7 MG/DL (0.6-1.3); GFR ESTIMATE (CALCULATED) > 59 mL/min/; MAGNESIUM 2.1 mg/dl (1.3-2.7); PHOSPHORUS 3.4 mg/dL (2.5-4.9); POTASSIUM 4.9 MEQ/L (3.7-5.4); SODIUM 154 MEQ/L (136-147); TOTAL BILIRUBIN 0.5 MG/DL (0.0-1.0); TOTAL PROTEIN 5.9 G/DL (6.4-8.3); UREA NITROGEN (BUN) 16 mg/dL (9-23)
[2018-01-14 06:20] LABS: GLUCOSE 116 mg/dL (70-99)
[2018-01-14 07:46] LABS: DEVICE AEROSOL MASK; FI02 70 %; SITE LR
[2018-01-14 07:47] LABS: BICARBONATE 23.1 mEq/L (22-26); CARBOXY HGB 1.7 % (0-5); PCO2 48 mm Hg (35-45); PO2 86 mm Hg (80-100); TOTAL RESP RATE 32 resp/min; pH 7.29 (7.35-7.45)
[2018-01-14 07:48] LABS: BASE EXCESS -3.6 mEq/L (-3 to +3)
[2018-01-14 07:49] LABS: COMMENTS - BLOOD GASES NAC+
[2018-01-16] MEDS ORDERED: DUONEB 2.5-0.5 M3 ML AEROSOL (12:19)
[2018-01-16] MEDS ORDERED: HALOPERIDOL5 MG/1 M1 IV (12:20)
[2018-01-16] MEDS ORDERED: ATROPINE 1100 DROP/5 PO (12:20)
[2018-01-16] MEDS ORDERED: MORPHINE IM (12:24)
== END 2018-01-16 16:20 | disposition hospice, home (50) | DRG 441 ==
LOC: EME → EDBD 22:11 → EDOF 01-10 00:55 → 4WEST 01-10 00:55 → ENRESERV 01-10 00:58 → EDOF 01-10 01:01 → ENRESERV 01-10 01:03 → EDOF 01-10 04:46 → ENRESERV 01-10 04:55 → 4WEST 01-10 07:30 → ENRESERV 01-14 15:18 → 5EAST 01-14 18:22
PROVIDERS: Emergency Medicine; Family Medicine; Internal Medicine; Internal Medicine Critical Care Medicine; Internal Medicine Gastroenterology; Obstetrics & Gynecology; Specialist
PROC: 0BH17EZ Insertion of Endotracheal Airway into Trachea, Via Natural or Artificial Opening (ICD-10-PCS; principal; 2018-01-10)
PROC: 5A1945Z Respiratory Ventilation, 24-96 Consecutive Hours (ICD-10-PCS; principal; 2018-01-10)
PROC: 06HM33Z Insertion of Infusion Device into Right Femoral Vein, Percutaneous Approach (ICD-10-PCS; principal; 2018-01-10)
PROC: B543ZZA Ultrasonography of Right Jugular Veins, Guidance (ICD-10-PCS; 2018-01-11)
PROC: 02HV33Z Insertion of Infusion Device into Superior Vena Cava, Percutaneous Approach (ICD-10-PCS; 2018-01-11)
DX: K72.90 Hepatic failure, unspecified without coma (principal); E72.20 Disorder of urea cycle metabolism, unspecified; K74.60 Unspecified cirrhosis of liver; J96.01 Acute respiratory failure with hypoxia; J96.02 Acute respiratory failure with hypercapnia; J69.0 Pneumonitis due to inhalation of food and vomit; E87.6 Hypokalemia; F10.239 Alcohol dependence with withdrawal, unspecified; Z51.5 Encounter for palliative care; Z66 Do not resuscitate; E87.0 Hyperosmolality and hypernatremia; E86.0 Dehydration; I10 Essential (primary) hypertension; F03.90 Unspecified dementia, unspecified severity, without behavioral disturbance, psychotic disturbance, mood disturbance, and anxiety; E78.5 Hyperlipidemia, unspecified; G43.909 Migraine, unspecified, not intractable, without status migrainosus; F41.9 Anxiety disorder, unspecified; F32.9 Major depressive disorder, single episode, unspecified; J44.9 Chronic obstructive pulmonary disease, unspecified; E55.9 Vitamin D deficiency, unspecified; K21.9 Gastro-esophageal reflux disease without esophagitis; I25.10 Atherosclerotic heart disease of native coronary artery without angina pectoris; R31.9 Hematuria, unspecified; R00.1 Bradycardia, unspecified; D18.03 Hemangioma of intra-abdominal structures; K76.0 Fatty (change of) liver, not elsewhere classified; G47.30 Sleep apnea, unspecified; E53.9 Vitamin B deficiency, unspecified; E51.9 Thiamine deficiency, unspecified; E66.9 Obesity, unspecified; E63.9 Nutritional deficiency, unspecified; R29.6 Repeated falls; Z96.642 Presence of left artificial hip joint; Z98.1 Arthrodesis status; Z87.891 Personal history of nicotine dependence; Z91.81 History of falling; Z88.0 Allergy status to penicillin; Z79.52 Long term (current) use of systemic steroids; Z68.25 Body mass index [BMI] 25.0-25.9, adult
CPT/HCPCS: 36600; 70450; 70551; 71045; 74183; 76705; 80048; 80048 91; 80053; 80074; 80076; 80202; 81003; 82105 90; 82140; 82607; 82746; 82803; 83090 90; 83605; 83735; 83921 90; 83930; 84100; 84145 90; 84146; 84425 90; 84443; 84484; 85025; 85027; 85610; 85730; 86141; 87040; 87070; 87205; 87502; 87641; 93005; 94002; 94003; 94640; 94640 76; 94799; 95819; 99202; 99281; 99285; C1751; G0480; J0696; J1630; J1720; J2060; J2250; J2270; J2704; J3010; J3370; J3411; J3475; J3480; J7040; J7042; J7050; J7120; J7512; S0028; S0030; S0073